=== PATIENT | female | born 1990 | race Caucasian/White ===

== ENCOUNTER 2020-01-02 01:25 | Emergency (ER) | payer MEDICARE, SELFPAY ==
[2020-01-02 01:34] VITALS: BP 121/79; PULSE 93; RESP 18; TEMP 36.7; O2SAT 99; BMI 23.5
--- NOTE | 2020-01-02 08:08 | ED.DENTAL ---
HPI - Dental/Oral General Chief complaint: Dental/Oral Stated complaint: right lower tooth pain Source: patient Mode of arrival: Ambulatory Related Data Home Medications Medication Instructions Recorded Confirmed citalopram 20 mg PO QDAY #0 09/14/16 divalproex 250 mg PO #0 09/14/16 fluphenazine HCl 1 mg PO #0 09/14/16 Allergies Allergy/AdvReac Type Severity Reaction Status Date / Time No Known Drug Allergies Allergy Verified 01/02/20 01:39 Patient History Social History Smoking Status: Current every day smoker Smoking Status: Current every day smoker alcohol intake frequency: 0-2 drinks per day Substance Use Type: marijuana Exam Initial Vital Signs Initial Vital Signs: Vital Signs Temperature 98.0 F 01/02/20 01:34 Pulse Rate 93 H 01/02/20 01:34 Respiratory Rate 18 01/02/20 01:34 Blood Pressure 121/79 01/02/20 01:34 Pulse Oximetry 99 01/02/20 01:34 Course Vital Signs Vital signs: Vital Signs - 8 hr 01/02/20 01:34 Temperature 98.0 F Pulse Rate 93 H Respiratory Rate 18 Blood Pressure 121/79 Pulse Oximetry 99 Discharge Plan Departure Patient Disposition: Left Without Being Seen Clinical Impression: Patient left without being seen Discharge Date/Time: 01/02/20 02:16
== END 2020-01-02 02:16 | disposition left against medical advice (07) ==
PROVIDERS: Emergency Provider Emergency Medicine; PCP Family Medicine
CPT/HCPCS: 99281

== ENCOUNTER 2020-06-27 15:41 | Emergency (ER) | payer MEDICARE, MEDICAID, SELFPAY ==
[2020-06-27 16:16] VITALS: BP 110/74; PULSE 91; RESP 19; TEMP 36.6; O2SAT 98; BMI 26.6
--- NOTE | 2020-06-27 16:22 | ED_ITS ---
HPI - Recheck/Abnormal Lab/Rx General Chief Complaint: Recheck/Abnormal Lab/Rx Stated Complaint: Unable to fill Insulin at Pharmacy Time Seen by Provider: 06/27/20 16:02 Source: patient Mode of arrival: Family Vehicle Limitations: no limitations History of Present Illness HPI narrative: 29-year-old female daily smoker with history of diabetes presents with her significant other requesting a refill for insulin. Patient states she has enough to get her through the night but expects to run out sometime tomorrow. She has no symptoms such as dizziness, weakness or lightheadedness. She has no chest pain or shortness of breath and denies any fever or chills. She states that she is in the process of switching providers and has therefore been unable to get her insulin refilled. She takes and NovoLog FlexPen and uses a sliding scale provided by her telephone operator chief. She does not know any of the parameters of her sliding scale and does not have it with her. I did discuss with her that I could refill the FlexPen but without the sliding scale it would be difficult in the pharmacy might not fill it. MD complaint: medication refill request Symptoms since prior visit: no new symptoms Associated symptoms: none Related Data Home Medications Medication Instructions Recorded Confirmed citalopram 20 mg PO QDAY #0 09/14/16 divalproex 250 mg PO #0 09/14/16 fluphenazine HCl 1 mg PO #0 09/14/16 Previous Rx's Medication Instructions Recorded insulin aspart U-100 [Novolog See Rx Instructions .ROUTE 06/27/20 Flexpen U-100 Insulin] .COMPLEX #3 ml Allergies Allergy/AdvReac Type Severity Reaction Status Date / Time No Known Drug Allergies Allergy Verified 06/27/20 16:15 Review of Systems Constitutional Constitutional: Denies chills, Denies fatigue, Denies fever(s), Denies frequent falls, Denies lethargy and Denies weakness Eyes Eyes: Denies change in vision, Denies eye discharge, Denies irritation and Denies loss of vision ENT Ears, Nose, Mouth, and Throat: Denies change in voice, Denies dizziness, Denies neck pain, Denies sore throat and Denies throat swelling Cardiovascular Cardiovascular: Denies chest pain, Denies irregular heart rhythm, Denies lightheadedness, Denies palpitations, Denies dyspnea, Denies dyspnea on exertion and Denies orthopnea Respiratory Respiratory: Denies cough, Denies dyspnea, Denies dyspnea on exertion and Denies wheezing Gastrointestinal Gastrointestinal: Denies abdominal pain, Denies change in bowel habits, Denies diarrhea, Denies nausea and Denies vomiting Musculoskeletal Musculoskeletal: Denies neck pain and Denies numbness Integumentary/Breasts Skin/Breast: Denies pruritus, Denies erythema, Denies rash and Denies wounds Neurologic Neurologic: Denies behavioral changes, Denies confusion, Denies dizziness, Denies frequent falls, Denies loss of vision, Denies numbness and Denies weakness Psychiatric Psychiatric: Denies anxiety, Denies behavioral changes, Denies confusion, Denies depression, Denies homicidal ideation and Denies suicidal ideation Endocrine Endocrine: Denies fatigue, Denies flushing and Denies palpitations Hematologic/Lymphatic Hematologic/Lymphatic: Denies easy bruising Allergic/Immunologic Allergic/Immunologic: Denies urticaria, Denies throat swelling and Denies wheezing Patient History Social History Smoking Status: Current every day smoker Smoking Status: Current every day smoker alcohol intake frequency: 0-2 drinks per day Substance Use Type: marijuana Exam Narrative Exam Narrative: GEN: AOx3 and in mild distress EYES: Pupils are equal, round, and reactive to light and accommodation. Extraoccular muscles are intact bilaterally. There is no subconjunctival hemo rrhage or exudate. CHEST: Lungs are clear to auscultation bilaterally and free of wheezes, rales, or rhonchi. Heart rate is regular rhythm, there are no murmurs, clicks, rubs, or gallops. There is no chest wall tenderness. ABD: Abdomen is soft and nontender. There is no guarding or rebound. Bowel sounds are normal in all 4 quadrants. There is no mass or organomegaly. EXT: Full painless ROM of all extremities with no loss of sensation or strength. SKIN: Warm, pink, and dry. No erythema or rash Initial Vital Signs Initial Vital Signs: Vital Signs Temperature 97.8 F 06/27/20 16:16 Pulse Rate 91 H 06/27/20 16:16 Respiratory Rate 19 06/27/20 16:16 Blood Pressure 110/74 06/27/20 16:16 Pulse Oximetry 98 06/27/20 16:16 Course Vital Signs Vital signs: Vital Signs - 8 hr 06/27/20 16:16 Temperature 97.8 F Pulse Rate 91 H Respiratory Rate 19 Blood Pressure 110/74 Pulse Oximetry 98 MDM - Recheck/Abnormal Lab/Rx MDM Narrative Medical decision making narrative: Not surprisingly the pharmacy was unable to refill her prescription. I encouraged the pharmacist to have the patient take her sliding scale to the pharmacy or call us in the emergency department and we would figure out a way to help her. Discharge Plan Departure Patient Disposition: Home Clinical Impression: Hyperglycemia due to diabetes mellitus, Noncompliance with medication regimen Activity Restrictions/Additional Instructions: *You have been diagnosed with [medication refill NovoLog FlexPen] *What to do: *Take medications as directed: Sent to [facility] as we discussed *Follow up with your primary care provider on Monday as planned, call for an appointment. Let them know you were seen in the Emergency Department and that we ask that you be seen in follow up *Return to ER if you should have any new, worsening or concerning symptoms Prescriptions: New insulin aspart U-100 [Novolog Flexpen U-100 Insulin] 100 unit/mL (3 mL) insulin pen See Rx Instructions .ROUTE .COMPLEX Qty: 3 RF: 0 No Action divalproex 250 MG tablet,delayed release (DR/EC) 250 mg PO Qty: 0 RF: 0 fluphenazine HCl 1 MG tablet 1 mg PO Qty: 0 RF: 0 citalopram 20 MG tablet 20 mg PO QDAY Qty: 0 RF: 0 Referrals: Karena Sidhu DO [Primary Care Provider] -
== END 2020-06-27 16:35 | disposition home or self-care (01) ==
PROVIDERS: Emergency Provider Emergency Medicine; PCP Family Medicine
DX: E11.65 Type 2 diabetes mellitus with hyperglycemia (principal); Z91.14 Patient's other noncompliance with medication regimen
CPT/HCPCS: 99281

== ENCOUNTER 2020-12-28 22:28 | Inpatient (IN) | payer MEDICARE, MEDICAID, SELFPAY ==
[2020-12-28 22:37] VITALS: BP 121/80; PULSE 125; RESP 30; TEMP 36.6; O2SAT 98
--- NOTE | 2020-12-28 22:43 | ED_ITS ---
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 She has moderate cognitive dysfunction and is acutely ill and history is challenging to obtain. Her father is somewhat helpful however clearly does not understand the details of her medical complexities. She does have her 2 insulins with her she uses Tresiba 5-10 units a.c. and HS and Basaglav 12 units at bedtime. Prior to arrival with blood sugar in the 300 issues range she was worried that she was developing DKA and her brother helped her administer an additional 12 units of Basaglav. She states that she is simply feeling sick since yesterday has been unable to keep any liquids down with significant vomiting over the last 24-36 hours. She does complain of mild abdominal pain no specific headache no cough describes no fevers no dysuria and no skin changes rashes or concerns for infection. She states that she has been in DKA multiple times before. Related Data Home Medications Medication Instructions Recorded Confirmed citalopram 20 mg tablet 20 mg PO QDAY #0 09/14/16 divalproex 250 mg tablet,delayed 250 mg PO #0 09/14/16 release fluphenazine HCl 1 mg tablet 1 mg PO #0 09/14/16 Previous Rx's Medication Instructions Recorded insulin aspart U-100 100 unit/mL See Rx Instructions .ROUTE 06/27/20 (3 mL) subcutaneous pen (Novolog .COMPLEX #3 ml Flexpen U-100 Insulin aspart) Allergies Allergy/AdvReac Type Severity Reaction Status Date / Time No Known Drug Allergies Allergy Verified 06/27/20 16:15 Review of Systems Review of Systems Narrative: Remainder of complete review of systems is otherwise unremarkable except for that included in the HPI. 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 Full and symmetrical air movement Cardiac: Tachycardic but otherwise Regular rhythm no murmurs no bruits Abdomen: Soft, mild diffuse abdominal tenderness without rebound or guarding, hypoactive bowel tones, no flank pain Skin: Warm and dry, no rashes Neurologic: Grossly neurologically intact with no obvious asymmetries or abnormalities Extremities: No trauma, well perfused Psych: Cooperative, mild cognitive slowing, father seems to indicate this is at baseline Initial Vital Signs Initial Vital Signs: Vital Signs Temperature 97.9 F 12/28/20 22:37 Pulse Rate 125 H 12/28/20 22:37 Respiratory Rate 30 H 12/28/20 22:37 Blood Pressure 121/80 12/28/20 22:37 Pulse Oximetry 98 12/28/20 22:37 Course Orders Ordered: ED Orders 12/28/20 22:39 EKG-12 Lead Stat RT Consult Eval and Treat Now 12/28/20 22:44 Complete Blood Count AUTO DIFF Stat Comprehensive Metabolic Panel Stat Ketones (Beta-Hydroxybutyrate) Stat Lactate (Lactic Acid) Stat Lipase Stat Procalcitonin Stat 12/28/20 22:48 Venous Blood Gas Stat 12/28/20 22:53 XR chest 1V Stat 12/28/20 23:05 Blood Culture Stat 12/28/20 23:19 Urine Culture Stat Urine Microscopic Stat 12/29/20 00:07 CT abdomen pelvis w con Stat 12/29/20 00:16 COVID19 - ADMIT (RECORDS ADMINISTRATOR swab/PCR) Stat 12/29/20 02:00 BMP [Basic Metabolic Panel] Stat INSULIN DRIP PREMIX (Myxredlin Drip Premix) 100 unit in 100 mls @ 6 mls/hr IV TITRATE KACIE; Protocol Last Admin: 12/28/20 23:15 Dose: 6 mls/hr, 6 mls/hr Documented by: DB Cosigned by: BSEVELIA Discontinued Medications Sodium Chloride (Normal Saline 0.9%) 1,000 mls @ 1,000 mls/hr IV BOLUS ONE Stop: 12/28/20 23:38 Last Infusion: 12/29/20 01:13 Dose: 0 mls/hr Documented by: Admin: 12/28/20 23:13 Dose: 1,000 mls/hr Documented by: DB Sodium Chloride (Normal Saline 0.9%) 1,000 mls @ 1,000 mls/hr IV BOLUS ONE Stop: 12/28/20 23:51 Last Admin: 12/28/20 23:44 Dose: 1,000 mls/hr Documented by: DB Sodium Chloride (Normal Saline 0.9%) 1,000 mls @ 1,000 mls/hr IV BOLUS ONE Stop: 12/28/20 23:51 Last Admin: 12/28/20 23:04 Dose: Not Given Documented by: DB Ondansetron HCl (Ondansetron 4 Mg/2 Ml Inj) 4 mg IV NOW ONE Stop: 12/28/20 22:53 Last Admin: 12/28/20 23:12 Dose: 4 mg Documented by: DB Vital Signs Vital signs: Vital Signs - 8 hr 12/28/20 22:37 12/28/20 22:44 12/28/20 22:46 Temperature 97.9 F Pulse Rate 125 H 123 H 130 H Respiratory Rate 30 H Blood Pressure 121/80 123/75 Pulse Oximetry 98 100 97 12/28/20 23:00 12/28/20 23:01 12/28/20 23:39 Temperature Pulse Rate 117 H 118 H 116 H Respiratory Rate 25 H 23 25 H Blood Pressure 116/84 116/84 110/69 Pulse Oximetry 100 100 100 12/29/20 00:00 12/29/20 00:30 12/29/20 01:00 Temperature Pulse Rate 118 H 125 H 114 H Respiratory Rate 18 22 24 Blood Pressure 114/76 108/87 118/64 Pulse Oximetry 100 100 100 Medical Decision Making Lab Data Result diagrams: 12/28/20 22:44 12/28/20 22:44 Labs: Lab Results 12/28/20 12/28/20 12/28/20 Range/Units 22:44 22:44 22:44 WBC 19.1 H (4.5-11.0) X10^3/uL RBC 5.85 H (4.0-5.2) X10^6/uL Hgb 17.2 H (12.0-16.0) g/dL Hct 53.2 H (36-46) % MCV 90.9 (80-100) fL MCH 29.4 (26-34) PG MCHC 32.4 (30-36) % RDW 14.4 (11.6-14.8) % Plt Count 257 (150-400) X10^3/uL Neut % (Auto) 90.5 H (50-75) % Lymph % (Auto) 5.2 L (25-40) % [place] % (Auto) 3.7 (3-14) % Eos % (Auto) 0.0 L (2-4) % Baso % (Auto) 0.6 (0-2) % Neut # (Auto) 76494 H (6135-9581) /uL Lymph # (Auto) 1000 L (0507-9438) /uL [place] # (Auto) 700 (0-900) /uL Eos # (Auto) 0 (0-450) /uL Baso # (Auto) 100 (0-100) /uL VBG pH (7.33-7.43) VBG pCO2 (45-50) mmHg VBG pO2 (35-45) mmHg VBG HCO3 (23-28) mmol/L VBG Total CO2 (24-29) mmol/L VBG O2 Saturation (70-75) % VBG Base Excess (0-4) mmol/L Sodium 137 (137-145) mmol/L Potassium 5.2 H (3.4-5.1) mmol/L Chloride 105 (98-107) mmol/L Carbon Dioxide < 5 L* (22-32) mmol/L BUN 11 (7-17) mg/dL Creatinine 1.02 (0.52-1.04) mg/dL Estimated GFR > 60.0 (>60) mL/min BUN/Creatinine Ratio 10.8 (6-22) Glucose 460 H (70-100) mg/dL Lactate 2.1 (0.7-2.1) mmol/L Calcium 9.4 (8.4-10.2) mg/dL Total Bilirubin 0.5 (0.2-1.3) mg/dL AST 19 (14-36) IU/L ALT 15 (<35) IU/L Alkaline Phosphatase 103 (38-126) U/L Total Protein 8.4 H (6.3-8.2) g/dL Albumin 5.3 H (3.5-5.0) g/dL Globulin 3.1 (1.7-4.1) g/dL Albumin/Globulin Ratio 1.7 (1.0-2.8) Lipase 34 (23-300) U/L Procalcitonin 0.05 (<0.5) ng/mL Urine RBC (0-5/HPF) Urine WBC (0-5/HPF) Ur Squamous Epith Cells (0-5/HPF) Urine Bacteria (None) Hyaline Casts (None) Granular Casts (None) Ur Culture Indicated? Ketones 12.97 H (<0.27) mmol/L SARS-CoV-2 (PCR) (Negative) 12/28/20 12/28/20 12/28/20 Range/Units 22:48 23:19 23:27 WBC (4.5-11.0) X10^3/uL RBC (4.0-5.2) X10^6/uL Hgb (12.0-16.0) g/dL Hct (36-46) % MCV (80-100) fL MCH (26-34) PG MCHC (30-36) % RDW (11.6-14.8) % Plt Count (150-400) X10^3/uL Neut % (Auto) (50-75) % Lymph % (Auto) (25-40) % [place] % (Auto) (3-14) % Eos % (Auto) (2-4) % Baso % (Auto) (0-2) % Neut # (Auto) (0355-6035) /uL Lymph # (Auto) (1536-8615) /uL [place] # (Auto) (0-900) /uL Eos # (Auto) (0-450) /uL Baso # (Auto) (0-100) /uL VBG pH 7.00 L* (7.33-7.43) VBG pCO2 17.0 L (45-50) mmHg VBG pO2 47 H (35-45) mmHg VBG HCO3 4 L (23-28) mmol/L VBG Total CO2 < 5 L (24-29) mmol/L VBG O2 Saturation 61 L (70-75) % VBG Base Excess -27.0 L (0-4) mmol/L Sodium (137-145) mmol/L Potassium (3.4-5.1) mmol/L Chloride (98-107) mmol/L Carbon Dioxide (22-32) mmol/L BUN (7-17) mg/dL Creatinine (0.52-1.04) mg/dL Estimated GFR (>60) mL/min BUN/Creatinine Ratio (6-22) Glucose (70-100) mg/dL Lactate (0.7-2.1) mmol/L Calcium (8.4-10.2) mg/dL Total Bilirubin (0.2-1.3) mg/dL AST (14-36) IU/L ALT (<35) IU/L Alkaline Phosphatase (38-126) U/L Total Protein (6.3-8.2) g/dL Albumin (3.5-5.0) g/dL Globulin (1.7-4.1) g/dL Albumin/Globulin Ratio (1.0-2.8) Lipase (23-300) U/L Procalcitonin (<0.5) ng/mL Urine RBC 0-1/hpf (0-5/HPF) Urine WBC 0-1/hpf (0-5/HPF) Ur Squamous Epith Cells 5-10 /hpf H (0-5/HPF) Urine Bacteria Moderate (10-30) H (None) Hyaline Casts 1-5/lpf (None) Granular Casts 1-5/lpf (None) Ur Culture Indicated? Culture not indicate Ketones (<0.27) mmol/L SARS-CoV-2 (PCR) Negative (Negative) Point of Care Testing Test Results Negative Glucose POC 343 Urine Dip Bedside Urine Glucose 1000 mg/dl Bedside Urine Bilirubin - Negative Bedside Urine Ketone +++ 80 Urine Specific [place] 1.030 Bedside Urine Occult Blood ++ Bedside Urine pH 5.5 Bedside Urine Protein ++ 100 Bedside Urine Urobilinogen - Negative Bedside Urine Nitrite - Negative Bedside Urine Leukocytes - Negative Esterase Point of care testing: Point of Care Testing Test Results Negative Glucose POC 343 Urine Dip Bedside Urine Glucose 1000 mg/dl Bedside Urine Bilirubin - Negative Bedside Urine Ketone +++ 80 Urine Specific Dahlgren 1.030 Bedside Urine Occult Blood ++ Bedside Urine pH 5.5 Bedside Urine Protein ++ 100 Bedside Urine Urobilinogen - Negative Bedside Urine Nitrite - Negative Bedside Urine Leukocytes - Negative Esterase Imaging Data Chest x-ray: Radiologist's Impression: FINDINGS:? ? Surgical changes and devices:? None.? ? Lungs and pleura:? Lungs are clear.? No pleural effusions or pneumothorax.? ? Mediastinum:? Mediastinal contours appear normal.? Heart size is normal.? ? Bones and chest wall:? No suspicious bony lesions.? Overlying soft tissues appear unremarkable.? ? IMPRESSION:? No acute cardiopulmonary disease. ? ? Dictated by: Daniel Rahman M.D. on 12/28/2020 at 23:43? ?? CT scan - abdomen/pelvis: Radiologist's Impression: FINDINGS:? Image quality:? Excellent.? ? Lung bases:? Mild ground-glass infiltrate in the left lower lobe medially.? ? Heart:? No significant findings. ? ? ABDOMEN: Liver:? Unremarkable.? ? Gallbladder:? Unremarkable.? ? Biliary ducts:? Unremarkable.? ? Pancreas:? Unremarkable.? ? Spleen:? Unremarkable.? ? Adrenal Glands:? Unremarkable.? ? Kidneys and Ureters:? Unremarkable.? ? ? Stomach and Bowel:? Stomach is mildly distended with an air-fluid level.? There is gastric antral thickening and thickening of the proximal duodenum.? Small bowel loops, and colon are normal in caliber.? There is a large amount of stool in colon. Peritoneum:? No abnormal intraperitoneal fluid.? No free air.? ? Ventral Wall: ? No hernia.? Abdominal Nodes:? No retroperitoneal or mesenteric adenopathy by size criteria.? Vessels:? Aorta and inferior vena cava are normal in size.? ? PELVIS: Pelvic Organs:? Uterus is unremarkable.? There is a 2.7 cm cyst in the left ovary, and a 1.8 cm cyst in the right ovary.? No pathological free-fluid in the cul-de-sac. Bladder:? Unremarkable.? ? Pelvic Nodes: No enlarged lymph nodes.? Miscellaneous: No inguinal hernias are seen. ? ? ? Bones:? Unremarkable.? IMPRESSION:? ? 1. Mild gastric distention with an air-fluid level within the stomach lumen.? Gastric antrum and proximal duodenum appears thickened, suggesting gastritis/duodenitis. ? 2. No small bowel obstruction. ? 3. A large amount of stool in colon ? 4. Bilateral ovarian cysts, most likely dominant ovarian follicles.? No pathological free-fluid in the cul-de-sac.? Recommend pelvic ultrasound follow-up if clinically indicated.? ? ? 5. There is subtle ground-glass infiltrate in the left lower lobe medially, suggesting mild pneumonia. ? Dictated by: Daniel Rahman M.D. on 12/29/2020 at 0:43? ?? ECG Data Interpretation: Sinus tachycardia at 121 Poor baseline due to her rapid breathing No acute ischemic changes MDM Narrative Medical decision making narrative: 30-year-old type 1 diabetic with Pamella's disease presents in diabetic ketoacidosis. On initial exam there is no suggestion of acute infectious etiology no reports of fever and no obvious infectious Disease findings on clinical exam. White count returns significantly elevated and a CT scan of the abdomen is being done to rule out any intra- abdominal pathology. I suspect that her abdominal pain is secondary to her DKA. Anion gap is calculated at 28.0. She is positive for ketones. Venous blood gas shows a pH of 6.995. Potassium is minimally elevated at 5.2 with no significant EKG changes. No hepatic abnormalities. Fluids are started, insulin drip is started remainder of labs are beginning to return. COVID screen is pending however she did have active COVID disease in September of 2019. Will need admission for diabetic ketoacidosis treatment. CT suggests subtle LL infiltrate. There are no clinical signs of bacterial pne umonia. CT scan also suggests a gastritis or duodenitis which may explain the abdominal pain and emesis recently. Currently blood pressures remain stable most recent 118/64 no evidence of hypotension. Blood sugars currently 343 with insulin at 6ml/hr. She has spontaneouly voided and is hemodynamically stable without signs of severe sepsis. Coodinating call with corporate general manager and hospitalist. Recommended non titrated insulin at .05mg/kg = 2.5units/hr. safe for transfer to the ICU. Discharge Plan Departure Patient Disposition: Admitted As Inpatient Prescriptions: No Action divalproex 250 MG tablet,delayed release (DR/EC) 250 mg PO Qty: 0 RF: 0 fluphenazine HCl 1 MG tablet 1 mg PO Qty: 0 RF: 0 citalopram 20 MG tablet 20 mg PO QDAY Qty: 0 RF: 0 insulin aspart U-100 [Novolog Flexpen U-100 Insulin] 100 unit/mL (3 mL) insulin pen See Rx Instructions .ROUTE .COMPLEX Qty: 3 RF: 0 Referrals: Karena Sidhu DO [Primary Care Provider] - Admit Date/Time: 12/29/20 01:49
[2020-12-28 22:44] VITALS: PULSE 123; O2SAT 100
[2020-12-28 22:46] VITALS: BP 123/75; PULSE 130; O2SAT 97
--- NOTE | 2020-12-28 22:53 | DI.RAD.S_ITS ---
PROCEDURE: XR CHEST 1V INDICATIONS: dyspnea TECHNIQUE: One view of the chest was acquired. COMPARISON: None. FINDINGS: Surgical changes and devices: None. Lungs and pleura: Lungs are clear. No pleural effusions or pneumothorax. Mediastinum: Mediastinal contours appear normal. Heart size is normal. Bones and chest wall: No suspicious bony lesions. Overlying soft tissues appear unremarkable. IMPRESSION: No acute cardiopulmonary disease. Dictated by: Daniel Rahman M.D. on 12/28/2020 at 23:43 Approved by: Daniel Rahman M.D. on 12/28/2020 at 23:44
[2020-12-28 23:00] VITALS: BP 116/84; PULSE 117; RESP 25; O2SAT 100
[2020-12-28 23:01] VITALS: BP 116/84; PULSE 118; RESP 23; O2SAT 100
[2020-12-28 23:01] LABS: HCO3 VBG 4 mmol/L (23-28); Oxygen Saturation VBG 61 % (70-75); PO2 VBG 47 mmHg (35-45); Total CO2 VBG < 5 mmol/L (24-29)
[2020-12-28 23:06] LABS: Add Manual Diff / Slide Review NO; Basophils Absolute Auto 100 /uL (0-100); Basophils Percent Auto 0.6 % (0-2); Eosinophils Absolute Auto 0 /uL (0-450); Hematocrit 53.2 % (36-46); Hemoglobin 17.2 g/dL (12.0-16.0); Lymphocytes Absolute Auto 1000 /uL (1100-4500); Lymphocytes Percent Auto 5.2 % (25-40); Mean Corpuscular HGB Conc 32.4 % (30-36); Mean Corpuscular Hemoglobin 29.4 PG (26-34); Mean Corpuscular Volume 90.9 fL (80-100); Monocytes Absolute Auto 700 /uL (0-900); Monocytes Percent Auto 3.7 % (3-14); Neutrophils Absolute Auto 17300 /uL (1500-7000); Neutrophils Percent Auto 90.5 % (50-75); Platelet Count 257 X10^3/uL (150-400); Red Blood Cell Count 5.85 X10^6/uL (4.0-5.2); Red Cell Distribution Width 14.4 % (11.6-14.8); White Blood Cell Count 19.1 X10^3/uL (4.5-11.0)
[2020-12-28] MEDS: ONDANSETRON 4 MG/2 ML INJ IV (23:12)
[2020-12-28] MEDS: SODIUM CHLORIDE 0.9% 1,000 ML 1000 ML IV ×2 (23:13→23:44)
[2020-12-28] MEDS: INSULIN DRIP PREMIX 100 UNIT/100 ML PLAST..BAG 6 UNIT IV (23:15)
[2020-12-28 23:17] LABS: Lactate (Lactic Acid) 2.1 mmol/L (0.7-2.1)
[2020-12-28 23:30] LABS: Alanine Aminotransferase 15 IU/L (<35); Albumin 5.3 g/dL (3.5-5.0); Albumin Globulin Ratio 1.7 (1.0-2.8); Alkaline Phosphatase 103 U/L (38-126); Aspartate Aminotransferase 19 IU/L (14-36); BUN Creatinine Ratio 10.8 (6-22); Bilirubin Total 0.5 mg/dL (0.2-1.3); Blood Urea Nitrogen 11 mg/dL (7-17); Calcium 9.4 mg/dL (8.4-10.2); Chloride 105 mmol/L (98-107); Estimated Glomerular Filt Rate > 60.0 mL/min (>60); Globulin 3.1 g/dL (1.7-4.1); Glucose 460 mg/dL (70-100); Lipase 34 U/L (23-300); Potassium 5.2 mmol/L (3.4-5.1); Sodium 137 mmol/L (137-145); Total Protein 8.4 g/dL (6.3-8.2)
[2020-12-28 23:39] VITALS: BP 110/69; PULSE 116; RESP 25; O2SAT 100
[2020-12-28 23:41] LABS: HEMOLYSIS 49 (0-50)
[2020-12-28 23:42] LABS: Bacteria Urine Moderate (10-30); Granular Casts Urine 1-5/LPF; RBC Urine 0-1/HPF (0-5/HPF); Squamous Epithelial Cell Urine 5-10 /HPF (0-5/HPF); WBC Urine 0-1/HPF (0-5/HPF)
[2020-12-28 23:43] LABS: Hyaline Casts Urine 1-5/LPF
[2020-12-28 23:49] LABS: Procalcitonin 0.05 ng/mL (<0.5)
[2020-12-28 23:50] LABS: Carbon Dioxide < 5 mmol/L (22-32)
[2020-12-29] VITALS (26 sets, daily range): BP systolic 81–124; BP diastolic 50–87; PULSE 77–133; RESP 15–25; TEMP 36.4–37.2; O2SAT 96–100; BMI 21.4
[2020-12-29 00:02] LABS: Ketones (Beta-Hydroxybutyrate) 12.97 mmol/L (<0.27)
--- NOTE | 2020-12-29 00:07 | DI.CT.S_ITS ---
PROCEDURE: CT ABDOMEN PELVIS W CON INDICATIONS: Abdominal pain, DKA, WBC 19K TECHNIQUE: After the administration of oral and IV contrast, axial sections were acquired from the lung bases to the pubic symphysis. Coronal and sagittal reformats were performed. For radiation dose reduction, the following was used: automated exposure control, adjustment of mA and/or kV according to patient size. COMPARISON: [facility], US, PELVIC COMPLETE, 05/18/2013, 12:28. [facility], CR, XR CHEST 1V, 12/28/2020, 23:32. FINDINGS: Image quality: Excellent. Lung bases: Mild ground-glass infiltrate in the left lower lobe medially. Heart: No significant findings. ABDOMEN: Liver: Unremarkable. Gallbladder: Unremarkable. Biliary ducts: Unremarkable. Pancreas: Unremarkable. Spleen: Unremarkable. Adrenal Glands: Unremarkable. Kidneys and Ureters: Unremarkable. Stomach and Bowel: Stomach is mildly distended with an air-fluid level. There is gastric antral thickening and thickening of the proximal duodenum. Small bowel loops, and colon are normal in caliber. There is a large amount of stool in colon. Peritoneum: No abnormal intraperitoneal fluid. No free air. Ventral Wall: No hernia. Abdominal Nodes: No retroperitoneal or mesenteric adenopathy by size criteria. Vessels: Aorta and inferior vena cava are normal in size. PELVIS: Pelvic Organs: Uterus is unremarkable. There is a 2.7 cm cyst in the left ovary, and a 1.8 cm cyst in the right ovary. No pathological free-fluid in the cul-de-sac. Bladder: Unremarkable. Pelvic Nodes: No enlarged lymph nodes. Miscellaneous: No inguinal hernias are seen. Bones: Unremarkable. IMPRESSION: 1. Mild gastric distention with an air-fluid level within the stomach lumen. Gastric antrum and proximal duodenum appears thickened, suggesting gastritis/duodenitis. 2. No small bowel obstruction. 3. A large amount of stool in colon 4. Bilateral ovarian cysts, most likely dominant ovarian follicles. No pathological free-fluid in the cul-de-sac. Recommend pelvic ultrasound follow-up if clinically indicated. 5. There is subtle ground-glass infiltrate in the left lower lobe medially, suggesting mild pneumonia. Dictated by: Daniel Rahman M.D. on 12/29/2020 at 0:43 Approved by: Daniel Rahman M.D. on 12/29/2020 at 0:55
--- NOTE | 2020-12-29 00:30 | PC.NURSE ---
Approximately @2100 pt's brother gave her 16units of her long acting insulin
[2020-12-29 00:53] LABS: Reflexed Lactate in 2 Hours Y
[2020-12-29 01:21] LABS: COVID19 - ADMIT (NP swab/PCR) Negative (Negative)
[2020-12-29] MEDS: cefTRIAXone 2,000 MG in SODIUM CHLORIDE 0.9% 100 ML 200 ML IV (01:48)
--- NOTE | 2020-12-29 02:05 | P.TELICUCN_ITS ---
History of Present Illness Consult details Chief complaint: DIBETIC SEIZURE :: This patient was seen via real time interactive two-way audiovisual telecommunication. Narrative: Patient is a 30 year old female with history of Gregoria's disease and type I DM presents hyperglycemia. Per ER report, patient has been feeling ill for the past 36 hours. Symptoms include intractable N/V. No report fever/chills or dysuria. Labs notable for severe DKA. CT abdomen/pelvis showed duodenitis and mild GGO in LLL. She received 2 liters crystalloid bolus and started on insulin infusion per DKA protocol. Teleintensivist consulted for further management. [facility] Medical History (Updated 12/29/20 @ 02:12 by Rachid Reid MD) Presymptomatic [place]'s disease (08/08/13) Type 1 diabetes Social History Smoking Status: Current every day smoker Current Medications Current Medications Medications: Home Medications citalopram 20 mg tablet 20 mg PO QDAY #0 09/14/16 [History] divalproex 250 mg tablet,delayed release 250 mg PO #0 09/14/16 [History] fluphenazine HCl 1 mg tablet 1 mg PO #0 09/14/16 [History] insulin aspart U-100 100 unit/mL (3 mL) subcutaneous pen (Novolog Flexpen U-100 Insulin aspart) See Rx Instructions .ROUTE .COMPLEX #3 ml 06/27/20 [Rx] Visit Medications (administered) Generic Name Dose Route Start Last Admin Trade Name Freq PRN Reason Stop Dose Admin INSULIN DRIP PREMIX 100 unit in 100 mls @ 6 mls/hr 12/28/20 23:00 12/28/20 23:15 Myxredlin Drip Premix IV 6 mls/hr TITRATE KACIE 6 mls/hr Administration Protocol Exam Vital Signs (past 8 hours): - 12/28/20 22:37 12/28/20 22:44 12/28/20 22:46 Temperature 97.9 F Pulse Rate 125 H 123 H 130 H Respiratory Rate 30 H Blood Pressure 121/80 123/75 Pulse Oximetry 98 100 97 12/28/20 23:00 12/28/20 23:01 12/28/20 23:39 Temperature Pulse Rate 117 H 118 H 116 H Respiratory Rate 25 H 23 25 H Blood Pressure 116/84 116/84 110/69 Pulse Oximetry 100 100 100 12/29/20 00:00 12/29/20 00:30 12/29/20 01:00 Temperature Pulse Rate 118 H 125 H 114 H Respiratory Rate 18 22 24 Blood Pressure 114/76 108/87 118/64 Pulse Oximetry 100 100 100 12/29/20 01:31 Temperature Pulse Rate 103 H Respiratory Rate 22 Blood Pressure 124/71 Pulse Oximetry 100 Oxygen Delivery Method Room Air Objective Labs Result Diagrams: 12/28/20 22:44 12/28/20 22:44 Labs: Laboratory Results - last 24 hr 12/28/20 12/28/20 12/28/20 22:44 22:44 22:44 WBC 19.1 H RBC 5.85 H Hgb 17.2 H Hct 53.2 H MCV 90.9 MCH 29.4 MCHC 32.4 RDW 14.4 Plt Count 257 Neut % (Auto) 90.5 H Lymph % (Auto) 5.[address] [place] % (Auto) 3.7 Eos % (Auto) 0.0 L Baso % (Auto) 0.6 Neut # (Auto) 69462 H Lymph # (Auto) [address] [place] # (Auto) 700 Eos # (Auto) 0 Baso # (Auto) 100 VBG pH VBG pCO2 VBG pO2 VBG HCO3 VBG Total CO2 VBG O2 Saturation VBG Base Excess Sodium 137 Potassium 5.2 H Chloride 105 Carbon Dioxide < 5 L* BUN 11 Creatinine 1.02 Estimated GFR > 60.0 BUN/Creatinine Ratio 10.8 Glucose 460 H Lactate 2.1 Calcium 9.4 Total Bilirubin 0.5 AST 19 ALT 15 Alkaline Phosphatase 103 Total Protein 8.4 H Albumin 5.3 H Globulin 3.1 Albumin/Globulin Ratio 1.7 Lipase 34 Procalcitonin 0.05 Urine RBC Urine WBC Ur Squamous Epith Cells Urine Bacteria Hyaline Casts Granular Casts Ur Culture Indicated? Ketones 12.97 H SARS-CoV-2 (PCR) 12/28/20 12/28/20 12/28/20 22:48 23:19 23:27 WBC RBC Hgb Hct MCV MCH MCHC RDW Plt Count Neut % (Auto) Lymph % (Auto) [place] % (Auto) Eos % (Auto) Baso % (Auto) Neut # (Auto) Lymph # (Auto) [place] # (Auto) Eos # (Auto) Baso # (Auto) VBG pH 7.00 L* VBG pCO2 17.0 L VBG pO2 47 H VBG HCO3 4 L VBG Total CO2 < 5 L VBG O2 Saturation 61 L VBG Base Excess -27.0 L Sodium Potassium Chloride Carbon Dioxide BUN Creatinine Estimated GFR BUN/Creatinine Ratio Glucose Lactate Calcium Total Bilirubin AST ALT Alkaline Phosphatase Total Protein Albumin Globulin Albumin/Globulin Ratio Lipase Procalcitonin Urine RBC 0-1/hpf Urine WBC 0-1/hpf Ur Squamous Epith Cells 5-10 /hpf H Urine Bacteria Moderate (10-30) H Hyaline Casts 1-5/lpf Granular Casts 1-5/lpf Ur Culture Indicated? Culture not indicate Ketones SARS-CoV-2 (PCR) Negative Assessment & Plan Assessment and plan (1) DKA, type 1: Status: Acute (2) Metabolic acidosis: Status: Acute Assessment & Plan narrative: NEURO: # Hx of gregoria's disease -- Resume home meds -- Needs PT/OT consultation RESP: -- On room air -- Encourage IS and OOB as tolerated CVS: # Sinus tachycardia -- Secondary to dehydration -- Cont aggressive IVF resuscitation -- High lytes goal -- Monitor on telemetry : # Severe metabolic acidosis -- Secondary to severe DKA -- DKA management as below ID: # Sepsis -- Secondary to severe DKA -- Concern raises for PNA given GGO at the LLL -- Reasonable to cont CAP rx 5 days -- Recommend checking urinary legionella/strep and resp cx -- Follow up cx data ENDO: # Severe DKA -- Secondary to infectious etiology as above -- Sepsis rx as above -- ICU admission w/ cardiac monitoring -- Recommend additional 2 liters LR bolus -- DKA protocol w/ insulin drip at 0.05 units/kg/hr -- Every hour accu checks, every 4 hour renal panel and Mg -- Goal Mg >2, phos>2, and K>4 -- Will transition to sliding scale insulin when AG <12 and Co2 >17 Case d/w Hermelinda TRANSPLANTER ORCHID and ERP. Time Spent With Patient Critical Care time: I spent a total of [] minutes of critical care time on this patient's care today; this time is exclusive of procedural time.
[2020-12-29 02:06] LABS: BUN Creatinine Ratio 14.9 (6-22); Blood Urea Nitrogen 10 mg/dL (7-17); Chloride 113 mmol/L (98-107); Estimated Glomerular Filt Rate > 60.0 mL/min (>60); Glucose 240 mg/dL (70-100); HEMOLYSIS 38 (0-50); Phosphorous 2.3 mg/dL (2.5-4.5); Potassium 4.1 mmol/L (3.4-5.1); Sodium 138 mmol/L (137-145)
[2020-12-29 02:08] LABS: Calcium 7.1 mg/dL (8.4-10.2)
[2020-12-29 02:09] LABS: Carbon Dioxide < 5 mmol/L (22-32)
[2020-12-29 02:18] LABS: Lactate 2HR (Lactic Acid Rflx) 1.1 mmol/L (0.7-2.1)
--- NOTE | 2020-12-29 03:21 | P.HP_ITS ---
History of Present Illness History of Present Illness Chief complaint: Diabetic ketoacidosis Narrative: Gila Richter is a 30-year-old female with Tiro's disease presents with a very elevated blood sugar. Father in the room answers most of the questions for her however he seems to be an unreliable historian. Initially states that her blood sugar was in the 900s and that the patient's older sister gave her an injection of ?some sort of pen injector which initially sounded like it was an EpiPen. Patient states that she had nausea and vomiting and is now hungry. She also had a headache. Father in the room stated that her speech was slurred. The patient also has significant cramping of her feet which she started a new medication for but does not recall the name. Per the father the patient has had 4 episodes of diabetic ketoacidosis. He states that he felt that she had a seizure tonight because she was shaking so much. He also states that a few years ago she went into diabetic ketoacidosis, was admitted to [facility] in [place] and stated that she arrested 4 times. We do not have any records of such. Patient's father did not bring any of her medications except for 2 injection pens. Patient and her father states that she falls frequently. Per the patient's father she goes to an zipper joiner at [facility], sees a neurologist for Tiro's disease at the [facility] and I do not believe she has a PCP at this time. In the emergency department they did a chest x-ray which was unremarkable and a CT scan of her abdomen. Per the ED provider, the CT scan of the abdomen seemed to indicate a consolidation of the left lower lobe and concluded she had a pneumonia. Patient is afebrile, blood pressure 121/77, heart rate 103, respiratory rate 25, oxygen saturation of 100% on room air she weighs 64 kg. WBC is markedly elevated at 19.1 RBC 5.85 hemoglobin 17.2 hematocrit 53.2 the significant left shift of 17,300, VB H pH was 7.0, VBG pCO2 S 17.0, VBG PO2 is 47, VBG bicarb 4, VBG total CO2 less than 5,, sodium 138, 5 potassium 4.1, chloride 113, bicarb less than 5, BUN 10, creatinine 0.67 with a EGFR of 60, glucose is 240, lactate 1.1, calcium 7.1, corrected calcium is 6.1, phosphorus 2.3, total protein is 8.4, 5 albumin is 5.3, Patient History Medical History (Updated 12/29/20 @ 02:49 by Echo Jenkins MD) Presymptomatic Tiro's disease (08/08/13) Type 1 diabetes Family & Social History Family History Mother Pamella's disease Father Alive and well Social History: Tobacco & Substance use: Smoking Status Current every day smoker, 1 pack per day alcohol intake frequency 0-2 drinks per day Substance Use Type marijuana Meds Home Medications and Allergies Home Medications Medication Instructions Recorded Confirmed Type citalopram 20 mg tablet 20 mg PO QDAY #0 09/14/16 History divalproex 250 mg tablet,delayed 250 mg PO #0 09/14/16 History release fluphenazine HCl 1 mg tablet 1 mg PO #0 09/14/16 History insulin aspart U-100 100 unit/mL See Rx Instructions .ROUTE 06/27/20 Rx (3 mL) subcutaneous pen (Novolog .COMPLEX #3 ml Flexpen U-100 Insulin aspart) Allergies Allergy/AdvReac Type Severity Reaction Status Date / Time No Known Drug Allergies Allergy Verified 06/27/20 16:15 Review of Systems Review of Systems ROS: Yes All systems reviewed with the patient and are negative except as otherwise documented Exam Vital Signs (past 8 hours): - 12/28/20 22:37 12/28/20 22:44 12/28/20 22:46 Temperature 97.9 F Pulse Rate 125 H 123 H 130 H Respiratory Rate 30 H Blood Pressure 121/80 123/75 Pulse Oximetry 98 100 97 12/28/20 23:00 12/28/20 23:01 12/28/20 23:39 Temperature Pulse Rate 117 H 118 H 116 H Respiratory Rate 25 H 23 25 H Blood Pressure 116/84 116/84 110/69 Pulse Oximetry 100 100 100 12/29/20 00:00 12/29/20 00:30 12/29/20 01:00 Temperature Pulse Rate 118 H 125 H 114 H Respiratory Rate 18 22 24 Blood Pressure 114/76 108/87 118/64 Pulse Oximetry 100 100 100 12/29/20 01:31 12/29/20 02:01 12/29/20 02:39 Temperature 98.6 F Pulse Rate 103 H 97 H 133 H Respiratory Rate 22 20 18 Blood Pressure 124/71 116/65 111/68 Pulse Oximetry 100 100 99 12/29/20 03:19 Temperature Pulse Rate 103 H Respiratory Rate 25 H Blood Pressure 121/77 Pulse Oximetry 100 Oxygen Delivery Method Room Air Oxygen Flow Rate 0 Narrative Exam Narrative: Gen: Alert, oriented, well-developed 30 y.o. female, NAD HEENT: normocephalic, atraumatic, conjunctiva clear, sclera non-icteric, oral mucosa pink and moist Neck: supple, full ROM, no JVD, trachea is midline Resp: Lungs CTA, non-labored breathing CV: regular but tachy, no murmur or rubs Abd: soft, non-tender, normoactive BTs Skin: Multiple bruises on both legs, no lesions or rashes, dry and intact Neuro: Question cognitive delay or impairment, alert and oriented X 3 w/no focal deficits. Speech clear and coherent. Extremities: moves all 4 extremities, is ambulatory, negative Benita?s sign Psyche: child-like affect. Objective Labs Result Diagrams: 12/28/20 22:44 12/29/20 01:46 Labs: Laboratory Results - last 24 hr 12/28/20 12/28/20 12/28/20 22:44 22:44 22:44 WBC 19.1 H RBC 5.85 H Hgb 17.2 H Hct 53.2 H MCV 90.9 MCH 29.4 MCHC 32.4 RDW 14.4 Plt Count 257 Neut % (Auto) 90.5 H Lymph % (Auto) 5.2 L [place] % (Auto) 3.7 Eos % (Auto) 0.0 L Baso % (Auto) 0.6 Neut # (Auto) 02874 H Lymph # (Auto) 1000 L [place] # (Auto) 700 Eos # (Auto) 0 Baso # (Auto) 100 VBG pH VBG pCO2 VBG pO2 VBG HCO3 VBG Total CO2 VBG O2 Saturation VBG Base Excess Sodium 137 Potassium 5.2 H Chloride 105 Carbon Dioxide < 5 L* BUN 11 Creatinine 1.02 Estimated GFR > 60.0 BUN/Creatinine Ratio 10.8 Glucose 460 H Lactate 2.1 Calcium 9.4 Phosphorus Total Bilirubin 0.5 AST 19 ALT 15 Alkaline Phosphatase 103 Total Protein 8.4 H Albumin 5.3 H Globulin 3.1 Albumin/Globulin Ratio 1.7 Lipase 34 Procalcitonin 0.05 Urine RBC Urine WBC Ur Squamous Epith Cells Urine Bacteria Hyaline Casts Granular Casts Ur Culture Indicated? Ketones 12.97 H SARS-CoV-2 (PCR) 12/28/20 12/28/20 12/28/20 22:48 23:19 23:27 WBC RBC Hgb Hct MCV MCH MCHC RDW Plt Count Neut % (Auto) Lymph % (Auto) [place] % (Auto) Eos % (Auto) Baso % (Auto) Neut # (Auto) Lymph # (Auto) [place] # (Auto) Eos # (Auto) Baso # (Auto) VBG pH 7.00 L* VBG pCO2 17.0 L VBG pO2 47 H VBG HCO3 4 L VBG Total CO2 < 5 L VBG O2 Saturation 61 L VBG Base Excess -27.0 L Sodium Potassium Chloride Carbon Dioxide BUN Creatinine Estimated GFR BUN/Creatinine Ratio Glucose Lactate Calcium Phosphorus Total Bilirubin AST ALT Alkaline Phosphatase Total Protein Albumin Globulin Albumin/Globulin Ratio Lipase Procalcitonin Urine RBC 0-1/hpf Urine WBC 0-1/hpf Ur Squamous Epith Cells 5-10 /hpf H Urine Bacteria Moderate (10-30) H Hyaline Casts 1-5/lpf Granular Casts 1-5/lpf Ur Culture Indicated? Culture not indicate Ketones SARS-CoV-2 (PCR) Negative 12/29/20 12/29/20 12/29/20 01:46 01:46 01:56 WBC RBC Hgb Hct MCV MCH MCHC RDW Plt Count Neut % (Auto) Lymph % (Auto) [place] % (Auto) Eos % (Auto) Baso % (Auto) Neut # (Auto) Lymph # (Auto) [place] # (Auto) Eos # (Auto) Baso # (Auto) VBG pH VBG pCO2 VBG pO2 VBG HCO3 VBG Total CO2 VBG O2 Saturation VBG Base Excess Sodium 138 Potassium 4.1 Chloride 113 H Carbon Dioxide < 5 L* BUN 10 Creatinine 0.67 Estimated GFR > 60.0 BUN/Creatinine Ratio 14.9 Glucose 240 H D Lactate 1.1 Calcium 7.1 L Phosphorus 2.3 L Total Bilirubin AST ALT Alkaline Phosphatase Total Protein Albumin Globulin Albumin/Globulin Ratio Lipase Procalcitonin Urine RBC Urine WBC Ur Squamous Epith Cells Urine Bacteria Hyaline Casts Granular Casts Ur Culture Indicated? Ketones SARS-CoV-2 (PCR) Assessment & Plan Assessment & Plan narrative: Gila Richter is admitted to the ICU for further management of heard diabetic ketoacidosis. 1. Diabetic ketoacidosis, acute, present on admission * Discussed case with the [facility] presidential support specialist who recommends fixed dose insulin infusion. When her gap closes and her glucose reaches 250 or less her insulin will be cross tapered with glargine with a 1-2 hour transition. * Electrolyte replacement per protocol q.4 hours * Cardiac monitoring * Father will bring patient's prescriptions for her insulin or we can obtain records from [facility] in the morning 2. Left lower lobe pneumonia, acute, present on admission * Continue IV ceftriaxone and initiate azithromycin 250 mg p.o. daily on December 30 3. Tiro's disease, chronic * Patient appears to of previously taken anti seizure and antipsychotic medications to control her symptoms. * Obtain records from Neurology regarding treatment of Pamella's symptoms * She has previously taken citalopram, divalproex, and fluphenazine for this VTE Prophylaxis: Wells risk score 1.5 Enoxaparin 40 mg subQ once daily [] Bilateral SCDs [] Patient is currently anticoagulated on []. Patient is admitted to the intensive care unit due to the severity of disease, risks of further disease progression and this stay is expected to exceed 2 midnights. FEN: IV fluids: Insulin drip followed by D5 half, diet: NPO then progressed to clears as tolerated, labs: CBC, C/BMP, liver enzymes, Mag, PT/INR Consultants Dr. Reid, [facility] Intensive [facility], care and involvement in the patient?s care is appreciated. Dispo: probable discharge to home Code status: DNAR, okay to intubate as discussed with the patient who identifies her father and sister as her surrogate and POA. [X] I have utilized all available immediate resources to obtain, update, or review of the patient's current medications COVID-19 COVID-19 status: Negative Result date/Date tested (Pos, Neg/Pending): 12/29/20 Time Spent With Patient Critical Care time: I spent a total of [] minutes of critical care time on this patient's care today; this time is exclusive of procedural time. Scores Wells' Criteria for PE Clinical signs and symptoms of DVT: No PE is #1 Dx or equally likely: No Heart rate > 100: Yes Immobilization at least 3 days or surg in previous 4 weeks: No History of PE or DVT: No Hemoptysis: No Malignancy w/Treatment within 6 months or palliative: No Wells' PE Score total: 1.5 Quality VTE Deep Vein Thrombosis/Pulmonary Embolism Present on Admission: No MIPS - Admit I confirm the patient?s Advance Care Plan is present, Code status is documented, Surrogate decision maker is in patient?s record [If Yes, STOP here]: Yes MIPS - DC The patient has current or prior documentation of left ventricular ejection fraction (LVEF) less than 40%, or moderate or severely depressed left ventricular systolic function.: No
[2020-12-29 03:44] LABS: Hemoglobin A1C% w Est Avg Glu 11.8 % (4.0-6.0)
[2020-12-29] MEDS: CALCIUM GLUCONATE 4.65 MEQ in SODIUM CHLORIDE 0.9% 50 ML 180 ML IV (04:31)
[2020-12-29 04:36] LABS: Albumin 3.9 g/dL (3.5-5.0)
[2020-12-29] MEDS: AZITHROMYCIN 500 MG in DEXTROSE 5% IN WATER 250 ML IV ×2 (04:59→21:44)
[2020-12-29] MEDS: LACTATED RINGERS 1,000 ML 1000 ML IV ×2 (05:56→21:10)
[2020-12-29] MEDS: DEXTROSE 5%-0.45% NS 1,000 ML 100 ML IV (07:00)
[2020-12-29 08:30] LABS: pH VBG 7.24 (7.33-7.43)
[2020-12-29 08:31] LABS: HCO3 VBG 13 mmol/L (23-28); Oxygen Saturation VBG 87 % (70-75); PCO2 VBG 29.8 mmHg (45-50); PO2 VBG 60 mmHg (35-45); Total CO2 VBG 14 mmol/L (24-29)
[2020-12-29 09:05] LABS: Lactate (Lactic Acid) 0.9 mmol/L (0.7-2.1)
--- NOTE | 2020-12-29 09:12 | PM.ICURNDS ---
- :: This patient was seen via real time interactive two-way audiovisual telecommunication. patient last chemistrtied with high anion gap and profundly low bicarb on dka protocol ( insulin gtt, d5 1/2 Ns - KCL added) FS q1 hr bridge to lantus when AG closed trend bmp q 3 hours adat if she is not nauseated dvt ppx cont emrpic abx -- few scant ggo at bases, though there few areas of tree in bud opacites on my interceptration
[2020-12-29 09:35] LABS: BUN Creatinine Ratio 15.5 (6-22); Blood Urea Nitrogen 9 mg/dL (7-17); Calcium 8.2 mg/dL (8.4-10.2); Carbon Dioxide 13 mmol/L (22-32); Chloride 113 mmol/L (98-107); Estimated Glomerular Filt Rate > 60.0 mL/min (>60); Glucose 139 mg/dL (70-100); HEMOLYSIS < 15 (0-50); Potassium 3.6 mmol/L (3.4-5.1); Sodium 136 mmol/L (137-145)
[2020-12-29] MEDS: ENOXAPARIN 40 MG/0.4 ML SYRINGE SUBCUT (10:10)
[2020-12-29] MEDS: POTASSIUM CHLORIDE IN WATER 10 MEQ/100 ML PIGGYBACK 100 MEQ IV ×8 (10:10→22:20)
[2020-12-29] MEDS: PANTOPRAZOLE 40 MG VIAL IV (10:11)
--- NOTE | 2020-12-29 12:25 | CM.DANOTE ---
Discharge Planning/Care Management CM Discharge Assessment Start: 12/29/20 12:22 Freq: Status: Active Protocol: Document 12/29/20 12:22 (Rec: 12/29/20 12:24 [id number]) Discharge Planning Assessment Assigned Electronic News Gathering Editor Lulu Garland RN/Operations Controller Advance Directives? No History Provided By Patient,Parents,Medical Record Prior Living Arrangements House Household Members family Type of transporation used prior to Relies on Others admit Independent with ADL's Yes Needs Assistance With Bathing,Meal Prep,Managing Medications,Home Chores / Shopping Caregiver for Another No DME Already Rented / Owned Bath Bench,FWW / Walker Patient/Family Preference Home with Home Health Barriers to Discharge No Comment Patient/family need increased education on diet and medication management regarding patient's diabetes. Discharge Plan Home with Home Health Transportation Arrangement Family Referrals Initiated Home Health Additional Comment Will send to [facility] Whiteboard Updated in Patient Room with Yes name and ext. # of Electronic News Gathering Editor Review Status In Process Next Review Type Continued Stay Review
--- NOTE | 2020-12-29 12:27 | CM.DANOTE ---
Addendum entered by Lulu Garland R.N. 12/29/20 13:20: Had hospitalist sign a face to face for home health, and confirmed with him that she is not yet medically ready for discharge. Addendum entered by Lulu Garland R.N. 12/29/20 13:06: Called [facility] to see if patient has a DIVYA Caregiver. At this time, she does not, but has SSI benefits, as well as food assistance. Original Note: DCP: Case received, EMR reviewed and met with patient. Kristi, stone fabricator, was also present in patient's room, and father, Kulwant Marinelli, arrived shortly after. Introduced self and role. Was able to obtain information regarding patient's baseline activity status at home as far as care needs, as well as her current living situation. DCP assessment completed with information currently available. Patient is a 30 year old female who admitted early this morning to the care of the hospitalist team. PCP: Dr. Lopez Payer: confirmed: Medicare/Medicaid. Patient came to the hospital via private vehicle secondary to having some increased blood sugars. Patient is disabled, and a type 1 diabetic. She holds current diagnosis of DKA, as well as pneumonia. Patient has history of Huntingtons Disease, and some cognitive dysfunction. Patient also has history of falls. Patient does see her endocinologist in [place], and according to her father, is now seeing Dr. Loepz in [place] instead of Dr. Sidhu. Patient resides in [place] with her sister, Shruthi Marinelli, who assists her. Father gave an updated address for patient at : [id number], which is in [place] [facility]. Admissions Coordinator was discussing eating habits, as well as her insulin use. Patient does have help with showers, does not drive, and has a walker if needed. She was able to answer some questions when asked. Father stated, she started seeing his doctor, Dr. Lopez, because she had to make more copayments with the other. He was inquiring if a nurse could come to the house to evaluate her a couple of times a week, with blood sugars. He is also interested in home P.t, and a bath aide. Let him know that this manager of case management can order this. He is not familiar with agencies, and has no preferences. [facility] is on calendar for this week, but they do not go to [place]. [facility] is on for this coming week, so will send them the referral. Gave a brochure to patient's father. P: DCP to continue to follow. Will call [facility] about the referral, and fax information. Will also get a face to face signed. Admissions Coordinator is communicating with nurse, Bozena, about some changes on her insulin medications that may need to occur. Lulu Garland RN/Microfilming Document Preparer Discharge Planning/Care Management CM Discharge Assessment Start: 12/29/20 12:22 Freq: Status: Active Protocol: Document 12/29/20 12:22 (Rec: 12/29/20 12:24 [email or web address]) Discharge Planning Assessment Assigned College Professor Lulu Garland RN/Microfilming Document Preparer Advance Directives? No History Provided By Patient,Parents,Medical Record Prior Living Arrangements House Household Members family Type of transporation used prior to Relies on Others admit Independent with ADL's Yes Needs Assistance With Bathing,Meal Prep,Managing Medications,Home Chores / Shopping Caregiver for Another No DME Already Rented / Owned Bath Bench,FWW / Walker Patient/Family Preference Home with Home Health Barriers to Discharge No Comment Patient/family need increased education on diet and medication management regarding patient's diabetes. Discharge Plan Home with Home Health Transportation Arrangement Family Referrals Initiated Home Health Additional Comment Will send to [facility] Whiteboard Updated in Patient Room with Yes name and ext. # of College Professor Review Status In Process Next Review Type Continued Stay Review
[2020-12-29 12:52] LABS: BUN Creatinine Ratio 17.5 (6-22); Blood Urea Nitrogen 10 mg/dL (7-17); Calcium 8.1 mg/dL (8.4-10.2); Carbon Dioxide 14 mmol/L (22-32); Chloride 112 mmol/L (98-107); Estimated Glomerular Filt Rate > 60.0 mL/min (>60); Glucose 120 mg/dL (70-100); HEMOLYSIS < 15 (0-50); Sodium 136 mmol/L (137-145)
--- NOTE | 2020-12-29 13:51 | DIAB.INIT ---
Addendum entered by Kristi Anderson 12/30/20 10:01: Reports T1DM dx four years ago. UBW prior to dx was 178-200#. Since dx UBW 165-170#. 07/14 wt per PCP notes was 173#. 12/29/20 wt 140.8#. That is -32.2# over 6 months, indicating a 18.6% weight loss. Difficult to assess muscle wasting. No signs of temporal or clavicle muscle loss. Also with Wagoner's she endorses muscle weakness. Nutrition diagnosis: Acute moderate malnutrition r/t hyperglycemia resulting in weight loss aeb elevated blood sugars, -32.2# in 6 months, and elevated hgA1c. Original Note: Diabetes Education Assessment Name: Gila Richter Assessment: 30y/o F with T1DM admitted with hyperglycemia, diagnosed with DKA. States she has been taking two insulins as rx'd. Lantus 15 u HS and Novolog 3-8 x per day for meals with correction scale. Upon further examination, she revealed the insulin pens she is using at home, and they are both long-acting insulins, Tresiba and Glargine. This RD/CDCES called her current pharmacy, which she recently changed to, and there is no rx for short-acting insulin. According to endo med list, she has been rx'd Glargine and Tresiba this year. No Aspart (Novolog) rx since 2019. Unclear when she stopped using Novolog. Seems likely that this lapse in short acting insulin is the reason her hyperglycemia has been so unmanaged. Endorses seeing [facility] endo via telehealth visits. Has PCP in [place]. States she has never seen life educator. Wears a Freestyle Deep, which indicates BG running in 400-500+ mg/dL prior to admit. Diet recall indicates three reasonable carb portioned meals, but frequent grazing on both carb and SF foods through the day and night. Gila is well versed on what foods are carbs or protein. She does not seem to be pairing macronutrients or eating carbs in moderation between meals. Reports being very hungry between meals. Limited ability to cook or prepare meals. Large intake of caffeine during the day between SF energy drinks and coffee with milk. Gila lives with her sister, Shruthi. Shruthi and their father seem to share the responsibilities of Gila's medical appointments and care. Between work and family obligations, Shruthi and their father seem to have a difficult time managing. Case management plans to coordinate home health RN potentially. Certainly for OP DM ed, Gila would likely benefit from having a family member present. 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 She would certainly benefit from seeing endo and DM ed after discharge. Father plans to call PCP for referral to DM ed. Consult prn Kristi Anderson RDN, CDCES Certified Diabetes Care and Computer Designer P: [phone] Thank you for this referral
[2020-12-29] MEDS: POTASSIUM PHOSPHATE 15 MMOL in SODIUM CHLORIDE 0.9% 250 ML 63.75 ML IV (14:56)
[2020-12-29 15:55] LABS: BUN Creatinine Ratio 17.9 (6-22); Blood Urea Nitrogen 10 mg/dL (7-17); Calcium 8.1 mg/dL (8.4-10.2); Carbon Dioxide 15 mmol/L (22-32); Chloride 111 mmol/L (98-107); Estimated Glomerular Filt Rate > 60.0 mL/min (>60); Glucose 117 mg/dL (70-100); HEMOLYSIS < 15 (0-50); Potassium 3.8 mmol/L (3.4-5.1); Sodium 135 mmol/L (137-145)
--- NOTE | 2020-12-29 15:56 | PC.NURSE ---
Addendum entered by Arlene Cox R.N. 12/29/20 19:00: CBG 89, updated Dr. Mccarthy and order received for carb consistent diet in lieu of D50 per protocol. Snack and juice provided to pt. Addendum entered by Arlene Cox R.N. 12/29/20 18:05: BP trending down to 80s/50s with MAP of 60. updated and order received for 1L NS bolus. Original Note: Day Shift Note Pt drowsy and sleeping most of shift but awakens easily to voice. Oriented x3. Insulin and IV fluid protocols clarified with Dr. Mccarthy in AM- DKA protocol to be followed for insulin gtt and D5 1/2 NS at 96 ml/hr to be infusing for IVF. K riders ordered and administered per protocol. Blood glucose checks done via scanning pt's own continuous glucose monitoring device (Deep). Pt is unsteady on her feet with slightly spastic movement, requires 1 person assist to BSC. Med reconciliation attempted, pt states she was only taking insulin at home. Pt was taking both Lantus and Tresiba pens. Instructions given on need for short acting insulin (which pt has taken in the past) and pt reports understanding. Call light within reach, using appropriately to make needs known.
[2020-12-29] MEDS: DEXTROSE 5%-0.45% NS 1,000 ML 96 ML IV (16:19)
[2020-12-29 17:01] LABS: Add Manual Diff / Slide Review NO; Basophils Absolute Auto 100 /uL (0-100); Basophils Percent Auto 1.1 % (0-2); Eosinophils Absolute Auto 0 /uL (0-450); Eosinophils Percent Auto 0.2 % (2-4); Hematocrit 41.3 % (36-46); Hemoglobin 13.6 g/dL (12.0-16.0); Lymphocytes Absolute Auto 2400 /uL (1100-4500); Lymphocytes Percent Auto 17.5 % (25-40); Mean Corpuscular HGB Conc 32.9 % (30-36); Mean Corpuscular Hemoglobin 29.1 PG (26-34); Mean Corpuscular Volume 88.3 fL (80-100); Monocytes Absolute Auto 1100 /uL (0-900); Monocytes Percent Auto 8.5 % (3-14); Neutrophils Absolute Auto 9800 /uL (1500-7000); Neutrophils Percent Auto 72.7 % (50-75); Platelet Count 130 X10^3/uL (150-400); Red Blood Cell Count 4.68 X10^6/uL (4.0-5.2); Red Cell Distribution Width 13.4 % (11.6-14.8); White Blood Cell Count 13.5 X10^3/uL (4.5-11.0)
[2020-12-29] MEDS: SODIUM CHLORIDE 0.9% 1,000 ML 1000 ML IV (17:20)
[2020-12-29 20:29] LABS: BUN Creatinine Ratio 15.8 (6-22); Blood Urea Nitrogen 9 mg/dL (7-17); Calcium 7.9 mg/dL (8.4-10.2); Carbon Dioxide 17 mmol/L (22-32); Chloride 111 mmol/L (98-107); Estimated Glomerular Filt Rate > 60.0 mL/min (>60); Glucose 204 mg/dL (70-100); HEMOLYSIS < 15 (0-50); Potassium 3.9 mmol/L (3.4-5.1); Sodium 136 mmol/L (137-145)
--- NOTE | 2020-12-29 20:36 | PM.ICURNDS ---
- :: This patient was seen via real time interactive two-way audiovisual telecommunication. Note: Multidisciplinary rounds completed. On insulin infusion per DKA protocol. AG closed but last Co2 15. Once CO2 is above 17 then will transition to lantus 20 units and medium dose insulin sliding scale. Case d/w RN at bedside.
[2020-12-29] MEDS: INSULIN GLARGINE 100 UNIT/ML 3ML PEN 20 UNIT SUBCUT (23:10)
[2020-12-30] VITALS (17 sets, daily range): BP systolic 87–102; BP diastolic 50–71; PULSE 66–89; RESP 14–33; TEMP 36.8–37.1; O2SAT 98–99
[2020-12-30] MEDS: cefTRIAXone 1,000 MG in SODIUM CHLORIDE 0.9% 100 ML 200 ML IV (01:25)
[2020-12-30 05:07] LABS: Add Manual Diff / Slide Review NO; Basophils Absolute Auto 100 /uL (0-100); Basophils Percent Auto 1.2 % (0-2); Eosinophils Absolute Auto 500 /uL (0-450); Eosinophils Percent Auto 6.9 % (2-4); Hematocrit 36.2 % (36-46); Hemoglobin 12.3 g/dL (12.0-16.0); Lymphocytes Absolute Auto 2800 /uL (1100-4500); Lymphocytes Percent Auto 40.1 % (25-40); Mean Corpuscular HGB Conc 34.1 % (30-36); Mean Corpuscular Hemoglobin 29.4 PG (26-34); Mean Corpuscular Volume 86.3 fL (80-100); Monocytes Absolute Auto 500 /uL (0-900); Monocytes Percent Auto 6.9 % (3-14); Neutrophils Absolute Auto 3100 /uL (1500-7000); Neutrophils Percent Auto 44.9 % (50-75); Platelet Count 125 X10^3/uL (150-400); Red Cell Distribution Width 13.4 % (11.6-14.8); White Blood Cell Count 6.9 X10^3/uL (4.5-11.0)
[2020-12-30 05:14] LABS: BUN Creatinine Ratio 14.3 (6-22); Blood Urea Nitrogen 8 mg/dL (7-17); Carbon Dioxide 21 mmol/L (22-32); Chloride 111 mmol/L (98-107); Estimated Glomerular Filt Rate > 60.0 mL/min (>60); Glucose 100 mg/dL (70-100); HEMOLYSIS < 15 (0-50); Potassium 3.4 mmol/L (3.4-5.1); Sodium 136 mmol/L (137-145)
[2020-12-30 05:15] LABS: Phosphorous 3.6 mg/dL (2.5-4.5)
--- NOTE | 2020-12-30 08:34 | P.DS_ITS ---
History of Present Illness History of Present Illness Date Patient Seen: 12/30/20 Time Patient Seen: 08:45 Chief complaint: Diabetic ketoacidosis Narrative: Per SUSY Kim: Gila Richter is a 30-year-old female with Pamella's disease presents with a very elevated blood sugar.? Father in the room answers most of the questions for her however he seems to be an unreliable historian.? Initially states that her blood sugar was in the 900s and that the patient's older sister gave her an injection of ?some sort of pen injector which initially sounded like it was an EpiPen.? Patient states that she had nausea and vomiting and is now hungry.? She also had a headache.? Father in the room stated that her speech was slurred.? The patient also has significant cramping of her feet which she started a new medication for but does not recall the name.? Per the father the patient has had 4 episodes of diabetic ketoacidosis.? He states that he felt that she had a seizure tonight because she was shaking so much.? He also states that a few years ago she went into diabetic ketoacidosis, was admitted to [facility] in [place] and stated that she arrested 4 times.? We do not have any records of such.? Patient's father did not bring any of her medications except for 2 injection pens.? Patient and her father states that she falls frequently.? Per the patient's father she goes to an hooker machine tender at [facility], sees a neurologist for Stonewall's disease at the [facility] and I do not believe she has a PCP at this time. In the emergency department they did a chest x-ray which was unremarkable and a CT scan of her abdomen.? Per the ED provider, the CT scan of the abdomen seemed to indicate a consolidation of the left lower lobe and concluded she had a pneumonia.? Patient is afebrile, blood pressure 121/77, heart rate 103, respiratory rate 25, oxygen saturation of 100% on room air she weighs 64 kg.? WBC is markedly elevated at 19.1 RBC 5.85 hemoglobin 17.2 hematocrit 53.2 the significant left shift of 17,300, VB H pH was 7.0, VBG pCO2 S 17.0, VBG PO2 is 47, VBG bicarb 4, VBG total CO2 less than 5,, sodium 138, 5 potassium 4.1, chloride 113, bicarb less than 5, BUN 10, creatinine 0.67 with a EGFR of 60, glucose is 240, lactate 1.1, calcium 7.1, corrected calcium is 6.1, phosphorus 2.3, total protein is 8.4, 5 albumin is 5.3, Discharge Providers Provider Date of admission: 12/29/20 01:49 Discharge Date: 12/30/20 Primary care physician: Karena Sidhu DO Consults: 12/29/20 02:35 Consult to Tele-spot welder line Routine Comment: Consulting Provider: Anabell [employer]intensiv[employer] Reason for consultation: Molding Utility Worker services Has provider been notified: Yes 12/29/20 15:16 Consult to Home Health Routine Comment: Reason For Exam: Home Health RN, P.T, O.T, Bath Aide Discharge provider: Ok Rogers DO Summary Hospital Course Discharge Diagnosis: 1. Diabetic ketoacidosis, acute, present on admission 2. Left lower lobe bacterial pneumonia, acute, present on admission 3. Pamella's disease, chronic 4. Acute cystitis Hospital Course: This is a 30-year-old female with a past medical history of insulin-dependent diabetes and Pamella's disease who was admitted with diabetic ketoacidosis. She improved quicker than expected on an insulin infusion and the morning after her admission her gap closed, and her blood sugars were controlled after resuming her home Lantus. As part of evaluation the patient did have a CT scan which showed a possible left lower lobe pneumonia, and she did improve quite quickly with ceftriaxone show she will be discharged on 4 days of Augmentin for possible left lower lobe bacterial pneumonia as well as positive UA / acute cystitis. She was discharged home with home health for further assistance with her Stonewall's disease and possible forgetfulness regarding her need for insulin. Time Spent with Patient Time spent: Less than 30 minutes Exam Vital Signs (past 8 hours): - 12/30/20 01:00 12/30/20 01:05 12/30/20 01:30 Temperature Pulse Rate 76 73 76 Respiratory Rate 31 H 18 16 Blood Pressure 89/58 L 89/58 L Pulse Oximetry 12/30/20 02:00 12/30/20 02:30 12/30/20 03:00 Temperature Pulse Rate 80 81 79 Respiratory Rate 21 20 28 H Blood Pressure 96/53 L Pulse Oximetry 12/30/20 03:19 12/30/20 03:30 12/30/20 04:00 Temperature Pulse Rate 80 77 85 Respiratory Rate 19 20 33 H Blood Pressure 96/53 L 92/58 L Pulse Oximetry 12/30/20 04:26 12/30/20 04:30 12/30/20 05:00 Temperature 98.7 F Pulse Rate 69 66 Respiratory Rate 29 H 14 Blood Pressure Pulse Oximetry 12/30/20 05:20 12/30/20 07:00 Temperature Pulse Rate 69 75 Respiratory Rate 16 19 Blood Pressure 87/53 L 95/55 L Pulse Oximetry 98 Oxygen Delivery Method Room Air Oxygen Flow Rate 0 Narrative Exam Narrative: Gen: Alert, oriented, well-developed 30 y.o. ? female, NAD HEENT: normocephalic, atraumatic, conjunctiva clear, sclera non-icteric, oral mucosa pink and moist Neck: supple, full ROM, no JVD, trachea is midline Resp: Lungs CTA, non-labored breathing CV: regular but tachy, no murmur or rubs Abd: soft, non-tender, normoactive BTs Skin: Multiple bruises on both legs, no lesions or rashes, dry and intact Neuro: Question cognitive delay or impairment, alert and oriented X 3 w/no focal deficits. Speech clear and coherent. Extremities: moves all 4 extremities, is ambulatory, negative Benita?s sign Psyche: child-like affect. Objective Labs Result Diagrams: 12/30/20 04:37 12/30/20 04:37 Labs: Laboratory Results - last 24 hr 12/29/20 12/29/20 12/29/20 08:00 08:22 08:30 WBC RBC Hgb Hct MCV MCH MCHC RDW Plt Count Neut % (Auto) Lymph % (Auto) [place] % (Auto) Eos % (Auto) Baso % (Auto) Neut # (Auto) Lymph # (Auto) [place] # (Auto) Eos # (Auto) Baso # (Auto) VBG pH 7.24 L VBG pCO2 29.8 L VBG pO2 60 H VBG HCO3 13 L VBG Total CO2 14 L VBG O2 Saturation 87 H VBG Base Excess -15.0 L Sodium Potassium Chloride Carbon Dioxide BUN Creatinine Estimated GFR BUN/Creatinine Ratio Glucose Lactate 0.9 Calcium Phosphorus Nasal Screen MRSA (PCR) Negative for mrsa 12/29/20 12/29/20 12/29/20 08:30 08:30 12:12 WBC 13.5 H RBC 4.68 Hgb 13.6 Hct 41.3 MCV 88.3 MCH 29.1 MCHC 32.9 RDW 13.4 Plt Count 130 L Neut % (Auto) 72.7 Lymph % (Auto) 17.5 L [place] % (Auto) 8.5 Eos % (Auto) 0.2 L Baso % (Auto) 1.1 Neut # (Auto) 9800 H Lymph # (Auto) 2400 [place] # (Auto) 1100 H Eos # (Auto) 0 Baso # (Auto) 100 VBG pH VBG pCO2 VBG pO2 VBG HCO3 VBG Total CO2 VBG O2 Saturation VBG Base Excess Sodium 136 L 136 L Potassium 3.6 4.0 Chloride 113 H 112 H Carbon Dioxide 13 L 14 L BUN 9 10 Creatinine 0.58 0.57 Estimated GFR > 60.0 > 60.0 BUN/Creatinine Ratio 15.5 17.5 Glucose 139 H D 120 H Lactate Calcium 8.2 L 8.1 L Phosphorus Nasal Screen MRSA (PCR) 12/29/20 12/29/20 12/30/20 15:31 20:10 04:37 WBC 6.9 RBC 4.20 Hgb 12.3 Hct 36.2 MCV 86.3 MCH 29.4 MCHC 34.1 RDW 13.4 Plt Count 125 L Neut % (Auto) 44.9 L D Lymph % (Auto) 40.1 H D [place] % (Auto) 6.9 Eos % (Auto) 6.9 H Baso % (Auto) 1.2 Neut # (Auto) 3100 Lymph # (Auto) 2800 [place] # (Auto) 500 Eos # (Auto) 500 H Baso # (Auto) 100 VBG pH VBG pCO2 VBG pO2 VBG HCO3 VBG Total CO2 VBG O2 Saturation VBG Base Excess Sodium 135 L 136 L Potassium 3.8 3.9 Chloride 111 H 111 H Carbon Dioxide 15 L 17 L BUN 10 9 Creatinine 0.56 0.57 Estimated GFR > 60.0 > 60.0 BUN/Creatinine Ratio 17.9 15.8 Glucose 117 H 204 H Lactate Calcium 8.1 L 7.9 L Phosphorus Nasal Screen MRSA (PCR) 12/30/20 12/30/20 04:37 04:37 WBC RBC Hgb Hct MCV MCH MCHC RDW Plt Count Neut % (Auto) Lymph % (Auto) [place] % (Auto) Eos % (Auto) Baso % (Auto) Neut # (Auto) Lymph # (Auto) [place] # (Auto) Eos # (Auto) Baso # (Auto) VBG pH VBG pCO2 VBG pO2 VBG HCO3 VBG Total CO2 VBG O2 Saturation VBG Base Excess Sodium 136 L Potassium 3.4 Chloride 111 H Carbon Dioxide 21 L BUN 8 Creatinine 0.56 Estimated GFR > 60.0 BUN/Creatinine Ratio 14.3 Glucose 100 D Lactate Calcium 8.0 L Phosphorus 3.6 D Nasal Screen MRSA (PCR) [facility] Medical History (Updated 12/29/20 @ 02:49 by Echo Jenkins MD) 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 You were also found to have a very mild pneumonia on imaging. Complete antibiotic therapy at home. No other medication changes at this time. Please follow up with PCP to review diabetes control in 1-2 weeks if possible. Discharge orders & Medications Prescriptions: New amoxicillin-pot clavulanate 875-125 mg tablet 1 tab PO BID 4 Days Qty: 8 RF: 0 Continued Lantus Solostar U-100 Insulin 100 unit/mL (3 mL) Insulin Pen 15 unit SUBCUT QPM RF: 0 Follow up/Referrals: Karena Sidhu DO [Primary Care Provider] - Diet/Activity/Treatments Diet: Diet as Tolerated and Carb-consistent/Diabetic Activity: As tolerated Visit Report/Discharge Packet Instructions: DI for Pneumonia -- Adult, DI for Diabetic Ketoacidosis Discharge Data Primary Care Provider: Karena Sidhu Quality VTE Deep Vein Thrombosis/Pulmonary Embolism Present on Admission: No
[2020-12-30] MEDS: INSULIN LISPRO 100 UNIT/ML 3ML VIAL SUBCUT (08:42)
--- NOTE | 2020-12-30 08:44 | CM.DPC ---
DCP continued: CM spoke with patient and they agreed with plan to DC home with [facility] in place. CM asked ROSA Huang to fax Face to face, DC summary and DC home Health Orders to [facility]. CM will continue to follow to assist with any further DC planning needs as they arise. Monika Hanna RNcraps manager.
--- NOTE | 2020-12-30 09:01 | CM.DPNOTE ---
Faxed DC summary, face to face and order per Monika to [facility] and received conf. Reina Real CM Asst.
--- NOTE | 2020-12-30 10:05 | PC.NURSE ---
Discharge Note Pt discharged to home with father at 1000. Written and verbal d/c teaching given on dka, lantus, blood sugar checks, and follow up. Pt has appt with PCP Dr. Lopez on the . Records to be faxed to his office per pt's request. All belongings with pt including cell phone, clothing, guilherme scanning device, and glasses.
== END 2020-12-30 10:00 | disposition home or self-care (01) | DRG 637 ==
LOC: ED 22:43 → AC 12-29 01:50 → ICU 12-29 02:46
PROVIDERS: Internal Medicine; Internal Medicine Pulmonary Disease; Admitting Provider Nurse Practitioner Family; Emergency Provider Emergency Medicine; PCP Family Medicine; Referring Provider Emergency Medicine; Visit Provider Nurse Practitioner Family
DX: E10.10 Type 1 diabetes mellitus with ketoacidosis without coma (principal); J15.9 Unspecified bacterial pneumonia; G10 Huntington's disease; N30.00 Acute cystitis without hematuria; F17.200 Nicotine dependence, unspecified, uncomplicated; R00.0 Tachycardia, unspecified; Z79.4 Long term (current) use of insulin; Z20.822 Contact with and (suspected) exposure to COVID-19
CPT/HCPCS: 36415; 71045; 74177; 80048; 80053; 81003; 81015; 81025; 82009; 82040; 82805; 82962; 83036; 83605; 83690; 84100; 84145; 85025; 87040; 87086; 87635; 87797; 93005; 96361; 96365; 96375; 99284; 99291; 99292; C9803; C9113; J0610; J0696; J1650; J1815; J2405; Q9967